=== PATIENT | female | born 1995 | race Caucasian/White ===

== ENCOUNTER 2018-04-14 02:13 | Emergency (ER) | payer OTHER ==
[~2018-04-14] VITALS: Ht 157.5 cm; Wt 59.9 kg
[2018-04-14 02:29] VITALS: BP 108/71; Ht 157.5 cm; Wt 59.9 kg
== END 2018-04-14 04:06 | disposition left against medical advice (07) ==
LOC: ED 02:13
DX: Z53.21 Procedure and treatment not carried out due to patient leaving prior to being seen by health care provider (principal)

== ENCOUNTER 2018-09-22 10:18 | Emergency (ER) | payer OTHER ==
[~2018-09-22] VITALS: Ht 157.5 cm; Wt 59.9 kg
[2018-09-22 10:41] VITALS: Ht 157.5 cm; Wt 59.9 kg
[2018-09-22 11:01] LABS: microscopic required? NO
[2018-09-22 11:06] LABS: BASOPHIL % 0.3 % (0-2); PLATELET COUNT 174 x10^3mcL (130-400)
[2018-09-22 11:07] LABS: RED CELL DISTRIBUTION WIDTH 15.1 % (11.5-14.5)
[2018-09-22 11:08] LABS: urine erythrocyte NEGATIVE (NEGATIVE)
[2018-09-22 11:15] LABS: CALCIUM 8.4 mg/dL (8.5-10.1); CARBON DIOXIDE 23.8 mmol/L (21-32); CHLORIDE SERUM 101 mmol/L (98-107); CREATININE SERUM 0.9 mg/dL (0.6-1.0); GFR1 > 60 mL/min; GLUCOSE SERUM 146 mg/dL (74-106); POTASSIUM SERUM 3.7 mmol/L (3.5-5.1); SODIUM SERUM 136 mmol/L (136-145)
[2018-09-22 11:20] LABS: ALBUMIN 3.9 g/dL (3.4-5.0); ALKALINE PHOSPHATASE 31 U/L (46-116); ALT/SGPT 16 U/L (14-59); AST/SGOT 8 U/L (15-37); BILIRUBIN TOTAL 0.36 mg/dL (0.20-1.00); TOTAL PROTEIN, SERUM 7.7 g/dL (6.4-8.2)
[2018-09-22 13:05] VITALS: BP 114/51
== END 2018-09-22 13:05 | disposition home or self-care (01) ==
LOC: ED 10:18
PROVIDERS: Emergency Medicine
DX: J11.1 Influenza due to unidentified influenza virus with other respiratory manifestations (principal); E86.0 Dehydration; F41.9 Anxiety disorder, unspecified; Z88.8 Allergy status to other drugs, medicaments and biological substances; Z91.018 Allergy to other foods
CPT/HCPCS: 87804; J1885; J7030; Q0092